=== PATIENT | male | born 1955 | race Caucasian/White ===

== ENCOUNTER 2017-02-10 17:15 | Emergency (ER) | payer MEDICARE, MEDICAID ==
[~2017-02-10] VITALS: Ht 180.3 cm; Wt 88.9 kg
[~2017-02-10 17:15] MED LIST: FLUT1DIS3 INH; GUAI600T53 PO; LEVO500T33 PO; METH40TA3 PO; PRED20TA PO
[2017-02-10 17:18] VITALS: BP 132/82
[2017-02-10 17:59] LABS: PATH.CAST-FLAG NOT PRESENT; SPERM-FLAG NOT PRESENT; SRC-FLAG NOT PRESENT; XTAL-FLAG NOT PRESENT; YLC-FLAG NOT PRESENT
[2017-02-10 18:35] LABS: BLOOD UREA NITROGEN 25 mg/dL (7-18)
[2017-02-10 18:38] LABS: ASPARTATE AMINO TRANSFERASE 41 U/L (15-37)
== END 2017-02-10 18:54 | disposition home or self-care (01) ==
LOC: ED 18:48
DX: N30.01 Acute cystitis with hematuria (principal); J44.9 Chronic obstructive pulmonary disease, unspecified; G89.29 Other chronic pain; B18.2 Chronic viral hepatitis C
CPT/HCPCS: 36415; 80053; 81001; 85025; 99284

== ENCOUNTER 2017-03-11 22:25 | Emergency (ER) | payer MEDICARE, MEDICAID ==
[~2017-03-11] VITALS: Ht 167.6 cm; Wt 91.0 kg
[2017-03-12 01:26] LABS: PATH.CAST-FLAG NOT PRESENT; SPERM-FLAG NOT PRESENT; SRC-FLAG NOT PRESENT; XTAL-FLAG NOT PRESENT; YLC-FLAG NOT PRESENT
[2017-03-12] MEDS ORDERED: PHENAZOPYRIDINE 200 MG TABLET ONE (01:36)
[2017-03-12 01:41] LABS: ASPARTATE AMINO TRANSFERASE 39 U/L (15-37); BLOOD UREA NITROGEN 25 mg/dL (7-18)
[2017-03-12] MEDS ORDERED: PHENAZOPYRIDINE 200 MG TABLET PO ONE (02:00)
[2017-03-12 03:21] VITALS: BP 175/97
== END 2017-03-12 03:49 | disposition home or self-care (01) ==
LOC: ED 03-12 01:50
DX: R31.0 Gross hematuria (principal); R30.0 Dysuria; R60.0 Localized edema; J44.9 Chronic obstructive pulmonary disease, unspecified; F17.210 Nicotine dependence, cigarettes, uncomplicated
CPT/HCPCS: 36415; 71020; 80053; 81001; 83880; 85025; 93005; 99285

== ENCOUNTER 2017-03-13 08:45 | Emergency (ER) | payer MEDICARE, MEDICAID ==
[~2017-03-13] VITALS: Ht 165.1 cm; Wt 89.3 kg
[2017-03-13 08:58] VITALS: BP 155/97
[2017-03-13] MEDS ORDERED: PHENAZOPYRIDINE 200 MG TABLET PO ONE (09:30)
[2017-03-13] MEDS ORDERED: PHENAZOPYRIDINE 200 MG TABLET ONE (10:20)
== END 2017-03-13 10:49 ==
LOC: ED 09:31
DX: N30.01 Acute cystitis with hematuria (principal); J44.9 Chronic obstructive pulmonary disease, unspecified; Z86.19 Personal history of other infectious and parasitic diseases
CPT/HCPCS: 99283

== ENCOUNTER 2017-11-15 16:23 | Emergency (ER) | payer MEDICARE, MEDICAID ==
[~2017-11-15] VITALS: Ht 180.3 cm; Wt 88.0 kg
[~2017-11-15 16:23] MED LIST changes: -GUAI600T53 PO; +GUAI600T80 PO; -LEVO500T33 PO; +LEVO500T47 PO
[2017-11-15 16:25] VITALS: BP 137/93
[2017-11-15 17:50] LABS: CULTURE INDICATED? YES; MICROSCOPIC INDICATED
== END 2017-11-15 18:56 | disposition home or self-care (01) ==
LOC: ED 18:53
DX: N30.00 Acute cystitis without hematuria (principal); J44.9 Chronic obstructive pulmonary disease, unspecified
CPT/HCPCS: 81001; 87086; 99284

== ENCOUNTER 2018-01-09 01:20 | Emergency (ER) | payer MEDICARE, MEDICAID ==
[~2018-01-09] VITALS: Ht 165.1 cm; Wt 83.7 kg
[2018-01-09 03:40] LABS: BASOPHILS # (AUTO) 0.03 x10^3/uL (0-0.1); BASOPHILS % (AUTO) 1 % (0-1); EOSINOPHILS # (AUTO) 0.27 x10^3/uL (0-0.4); EOSINOPHILS % (AUTO) 5 % (1-7); LYMPHOCYTES # (AUTO) 1.09 x10^3/uL (1-3.4); LYMPHOCYTES % (AUTO) 18 % (22-44); MD NO; MEAN CORPUSCULAR HEMOGLOBIN 28.6 pg (27.5-34.5); MEAN CORPUSCULAR HGB CONC 32.6 g/dL (33.2-36.2); MEAN CORPUSCULAR VOLUME 87.8 fL (81-97); MEAN PLATELET VOLUME 8.3 fL (7.4-10.4); MONOCYTES # (AUTO) 0.42 x10^3/uL (0.2-0.8); MONOCYTES % (AUTO) 7 % (2-9); NEUTROPHILS # (AUTO) 4.11 x10^3/uL (1.8-6.8); NEUTROPHILS % (AUTO) 70 % (42-75); PLATELET COUNT 182 x10^3/uL (130-400); RED BLOOD COUNT 4.49 x10^6/uL (4.38-5.82); RED CELL DISTRIBUTION WIDTH 14.7 % (9.4-14.8)
[2018-01-09 03:48] LABS: ALANINE AMINOTRANSFERASE 39 U/L (12-78); ALBUMIN 3.5 g/dL (3.4-5.0); ANION GAP 7 mmol/L (5-15); CALCIUM 8.6 mg/dL (8.5-10.1); CHLORIDE 104 mmol/L (98-107); CREATININE 1.05 mg/dL (0.7-1.3)
[2018-01-09 03:51] LABS: ALKALINE PHOSPHATASE 76 U/L (45-117); BILIRUBIN,TOTAL 0.6 mg/dL (0.2-1.0); TOTAL PROTEIN 7.5 g/dL (6.4-8.2)
[2018-01-09 06:00] VITALS: BP 137/88
== END 2018-01-09 06:03 | disposition home or self-care (01) ==
LOC: ED 05:57
DX: B35.3 Tinea pedis (principal); I10 Essential (primary) hypertension; G89.29 Other chronic pain; M79.672 Pain in left foot; J44.9 Chronic obstructive pulmonary disease, unspecified; F17.210 Nicotine dependence, cigarettes, uncomplicated
CPT/HCPCS: 36415; 80053; 85025; 99285

== ENCOUNTER 2019-03-21 14:28 | Emergency (ER) | payer MEDICARE, MEDICAID ==
[~2019-03-21] VITALS: Ht 180.3 cm; Wt 89.1 kg
[2019-03-21 14:44] VITALS: BP 160/88
[2019-03-21] MEDS ORDERED: ALBUTEROL/IPRATROPIUM 2.5MG/0.5MG, 3 ML ONE (15:22)
[2019-03-21] MEDS ORDERED: ALBUTEROL/IPRATROPIUM 2.5MG/0.5MG, 3 ML NPPB ONE (15:30)
== END 2019-03-21 16:11 | disposition home or self-care (01) ==
LOC: ED 16:00
DX: J02.9 Acute pharyngitis, unspecified (principal); F17.200 Nicotine dependence, unspecified, uncomplicated; I10 Essential (primary) hypertension; J44.9 Chronic obstructive pulmonary disease, unspecified
CPT/HCPCS: 71046; 87081; 87880; 94640; 99284; J7620; 87147

== ENCOUNTER 2019-04-03 02:13 | Emergency (ER) | payer MEDICARE, MEDICAID ==
[~2019-04-03] VITALS: Ht 180.3 cm; Wt 89.2 kg
[2019-04-03] MEDS ORDERED: methylPREDNISolone SOD SUCC 125 MG/2 ML IVP ONE (02:30)
[2019-04-03] MEDS ORDERED: ALBUTEROL/IPRATROPIUM 2.5MG/0.5MG, 3 ML NPPB SCH (02:30)
[2019-04-03] MEDS ORDERED: SODIUM CHLORIDE FLUSH 10ML SYR IVF ONE (02:30)
[2019-04-03] MEDS ORDERED: ALBUTEROL/IPRATROPIUM 2.5MG/0.5MG, 3 ML ONE ×2 (02:45)
[2019-04-03] MEDS ORDERED: methylPREDNISolone SOD SUCC 125 MG/2 ML ONE (03:14)
[2019-04-03 03:39] VITALS: BP 140/78
[2019-04-03 03:43] LABS: BASOPHILS # (AUTO) 0.03 x10^3/uL (0-0.1); BASOPHILS % (AUTO) 0 % (0-1); EOSINOPHILS # (AUTO) 0.73 x10^3/uL (0-0.4); EOSINOPHILS % (AUTO) 9 % (1-7); LYMPHOCYTES # (AUTO) 1.58 x10^3/uL (1-3.4); LYMPHOCYTES % (AUTO) 20 % (22-44); MD NO; MEAN CORPUSCULAR HEMOGLOBIN 29.5 pg (27.5-34.5); MEAN CORPUSCULAR HGB CONC 32.7 g/dL (33.2-36.2); MEAN CORPUSCULAR VOLUME 90.2 fL (81-97); MEAN PLATELET VOLUME 8.5 fL (7.4-10.4); MONOCYTES # (AUTO) 0.69 x10^3/uL (0.2-0.8); MONOCYTES % (AUTO) 9 % (2-9); NEUTROPHILS # (AUTO) 4.82 x10^3/uL (1.8-6.8); NEUTROPHILS % (AUTO) 61 % (42-75); PLATELET COUNT 177 x10^3/uL (130-400); RED BLOOD COUNT 4.66 x10^6/uL (4.38-5.82); RED CELL DISTRIBUTION WIDTH 14.3 % (9.4-14.8)
--- NOTE | 2019-04-03 03:46 | NUR ---
PT IN HOSPITAL GOWN. IV STARTED, PT MEDICATED WITH ORDERED MEDS. BLOOD CX DRAWN X2 AND LABS. PT ON CARDIAC AND VITALS MONITORS. BILAT BEDRAILS UP. CALL LIGHT WITHIN REACH. WILL CONTINUE TO MONITOR.
[2019-04-03 03:52] LABS: ALANINE AMINOTRANSFERASE 30 U/L (12-78); ALBUMIN 3.7 g/dL (3.4-5.0); ANION GAP 3 mmol/L (5-15); CALCIUM 8.8 mg/dL (8.5-10.1); CHLORIDE 108 mmol/L (98-107); CREATININE 1.07 mg/dL (0.7-1.3)
[2019-04-03 03:56] LABS: ALKALINE PHOSPHATASE 65 U/L (45-117); BILIRUBIN,TOTAL 0.8 mg/dL (0.2-1.0); TOTAL PROTEIN 7.7 g/dL (6.4-8.2); TROPONIN I < 0.015 ng/mL (0.000-0.045)
== END 2019-04-03 04:30 | disposition home or self-care (01) ==
LOC: ED 04:28
DX: J44.1 Chronic obstructive pulmonary disease with (acute) exacerbation (principal); J20.8 Acute bronchitis due to other specified organisms; I10 Essential (primary) hypertension; G89.29 Other chronic pain; F17.210 Nicotine dependence, cigarettes, uncomplicated
CPT/HCPCS: 36415; 71045; 80053; 83880; 84484; 85025; 87040; 93005; 94640; 96374; 99284; 99406; J2930; J7620

== ENCOUNTER 2019-05-03 02:46 | Emergency (ER) | payer MEDICARE, MEDICAID ==
[~2019-05-03] VITALS: Ht 180.3 cm; Wt 88.7 kg
--- NOTE | 2019-05-03 03:04 | NUR ---
pt states he has had difficulty breathing for about 6 weeks.
--- NOTE | 2019-05-03 03:05 | NUR ---
er md in to assess pt
[2019-05-03] MEDS ORDERED: ALBUTEROL/IPRATROPIUM 2.5MG/0.5MG, 3 ML ONE (03:12)
[2019-05-03 03:32] LABS: BASOPHILS # (AUTO) 0.02 x10^3/uL (0-0.1); BASOPHILS % (AUTO) 0 % (0-1); EOSINOPHILS # (AUTO) 0.04 x10^3/uL (0-0.4); EOSINOPHILS % (AUTO) 1 % (1-7); LYMPHOCYTES # (AUTO) 0.67 x10^3/uL (1-3.4); LYMPHOCYTES % (AUTO) 10 % (22-44); MD NO; MEAN CORPUSCULAR HEMOGLOBIN 29.3 pg (27.5-34.5); MEAN CORPUSCULAR HGB CONC 32.8 g/dL (33.2-36.2); MEAN CORPUSCULAR VOLUME 89.3 fL (81-97); MEAN PLATELET VOLUME 8.2 fL (7.4-10.4); MONOCYTES # (AUTO) 0.11 x10^3/uL (0.2-0.8); MONOCYTES % (AUTO) 2 % (2-9); NEUTROPHILS # (AUTO) 5.78 x10^3/uL (1.8-6.8); NEUTROPHILS % (AUTO) 87 % (42-75); PLATELET COUNT 215 x10^3/uL (130-400); RED BLOOD COUNT 4.31 x10^6/uL (4.38-5.82); RED CELL DISTRIBUTION WIDTH 14.5 % (9.4-14.8)
[2019-05-03 03:46] LABS: ALANINE AMINOTRANSFERASE 40 U/L (12-78); ALBUMIN 3.4 g/dL (3.4-5.0); ANION GAP 7 mmol/L (5-15); CALCIUM 9.1 mg/dL (8.5-10.1); CHLORIDE 113 mmol/L (98-107); CREATININE 1.23 mg/dL (0.7-1.3)
[2019-05-03 03:50] LABS: ALKALINE PHOSPHATASE 60 U/L (45-117); BILIRUBIN,TOTAL 0.4 mg/dL (0.2-1.0); TOTAL PROTEIN 7.3 g/dL (6.4-8.2); TROPONIN I < 0.015 ng/mL (0.000-0.045)
[2019-05-03 04:13] VITALS: BP 135/79
--- NOTE | 2019-05-03 04:14 | NUR ---
PT RESTING ON GURGENEVA. NO REQUESTS AT THIS TIME. NO ACUTE DISTRESS NTOED.
== END 2019-05-03 04:41 | disposition home or self-care (01) ==
LOC: ED 04:30
DX: L03.116 Cellulitis of left lower limb (principal); L03.115 Cellulitis of right lower limb; R06.00 Dyspnea, unspecified; J44.9 Chronic obstructive pulmonary disease, unspecified; I10 Essential (primary) hypertension; Z86.19 Personal history of other infectious and parasitic diseases; Z72.9 Problem related to lifestyle, unspecified; F17.200 Nicotine dependence, unspecified, uncomplicated
CPT/HCPCS: 36415; 71045; 80053; 83880; 84484; 85025; 93005; 94640; 99284

== ENCOUNTER 2019-05-16 21:14 | Inpatient (IN) | payer MEDICARE, MEDICAID ==
[~2019-05-16] VITALS: Ht 180.3 cm; Wt 89.1 kg
[2019-05-16] MEDS ORDERED: ALBUTEROL SULFATE 2.5 MG/3 ML NPPB ONE (21:30)
[2019-05-16] MEDS ORDERED: ALBUTEROL/IPRATROPIUM 2.5MG/0.5MG, 3 ML ONE (21:41)
[2019-05-16 21:50] LABS: BASOPHILS % (AUTO) 0 % (0-1); EOSINOPHILS # (AUTO) 0.04 x10^3/uL (0-0.4); EOSINOPHILS % (AUTO) 0 % (1-7); LYMPHOCYTES # (AUTO) 0.92 x10^3/uL (1-3.4); LYMPHOCYTES % (AUTO) 11 % (22-44); MD NO; MEAN CORPUSCULAR HEMOGLOBIN 29.3 pg (27.5-34.5); MEAN CORPUSCULAR HGB CONC 32.5 g/dL (33.2-36.2); MEAN CORPUSCULAR VOLUME 90.3 fL (81-97); MONOCYTES % (AUTO) 6 % (2-9); NEUTROPHILS # (AUTO) 7.02 x10^3/uL (1.8-6.8); NEUTROPHILS % (AUTO) 83 % (42-75); PLATELET COUNT 184 x10^3/uL (130-400); RED BLOOD COUNT 4.54 x10^6/uL (4.38-5.82); RED CELL DISTRIBUTION WIDTH 14.6 % (9.4-14.8)
[2019-05-16 21:59] LABS: ALANINE AMINOTRANSFERASE 47 U/L (12-78); ALBUMIN 3.2 g/dL (3.4-5.0); ANION GAP 3 mmol/L (5-15); CALCIUM 8.9 mg/dL (8.5-10.1); CHLORIDE 110 mmol/L (98-107); CREATININE 1.08 mg/dL (0.7-1.3)
[2019-05-16 22:05] LABS: ALKALINE PHOSPHATASE 59 U/L (45-117); BILIRUBIN,TOTAL 0.4 mg/dL (0.2-1.0)
--- NOTE | 2019-05-16 22:22 | NUR ---
FLOAT RN: PT RESTING IN ROOM. NO ACUTE DISTRESS NOTED. VS STABLE. WILL CONTINUE TO MONITOR WHILE PRIMARY RN IS ON BREAK.
[2019-05-16] MEDS ORDERED: ONDANSETRON ODT 4 MG ONE (22:37)
[2019-05-16] MEDS ORDERED: ONDANSETRON ODT 4 MG PO ONE (23:00)
--- NOTE | 2019-05-16 23:00 | NUR ---
REPORT GIVEN TO ESTEFANY GUTIERREZ
[2019-05-16 23:02] LABS: TROPONIN I 0.115 ng/mL (0.000-0.045)
[2019-05-16] MEDS ORDERED: ASPIRIN 81 MG TABLET CHEW ONE (23:27)
[2019-05-16] MEDS ORDERED: PROMETHAZINE 25 MG/ML, 1ML IM PRN (23:30)
[2019-05-16] MEDS ORDERED: MORPHINE SULFATE 4 MG/ML, 1ML IVPush PRN (23:30)
[2019-05-16] MEDS ORDERED: ONDANSETRON 2MG/ML, 2ML IVPush PRN (23:30)
[2019-05-16] MEDS ORDERED: ASPIRIN 81 MG TABLET CHEW PO ONE (23:30)
[2019-05-17 00:42] VITALS: BP 165/79
[2019-05-17] MEDS ORDERED: ONDANSETRON 2MG/ML, 2ML IVPush PRN (01:30)
[2019-05-17] MEDS ORDERED: METHADONE 5 MG TABLET PO PRN (01:30)
[2019-05-17] MEDS ORDERED: HEPARIN 5,000 UNITS/ML, 1ML SQ SCH (01:30)
[2019-05-17] MEDS ORDERED: MAALOX/HYOSCYAMINE/LIDOCAINE 45 ML BTL PO ONE (01:30)
[2019-05-17] MEDS ORDERED: LABETALOL 5MG/ML, 20ML IVPush PRN (01:30)
[2019-05-17] MEDS ORDERED: POLYETHYLENE GLYCOL 17 GM PACKET PO PRN (01:30)
[2019-05-17] MEDS ORDERED: morphine SULFATE 10 MG/ML, 1ML IVPush PRN (01:30)
[2019-05-17] MEDS ORDERED: PROMETHAZINE 25 MG/ML, 1ML IM PRN (01:30)
[2019-05-17] MEDS ORDERED: BISACODYL 10 MG SUPP PR PRN (01:30)
[2019-05-17] MEDS ORDERED: hydrALAzine 20 MG/ML, 1ML IVPush PRN (01:30)
[2019-05-17] MEDS ORDERED: ONDANSETRON ODT 4 MG PO PRN (01:30)
[2019-05-17] MEDS ORDERED: ACETAMINOPHEN 325 MG TABLET PO PRN (01:30)
[2019-05-17 02:27] LABS: MICROSCOPIC AUTO
[2019-05-17 02:30] LABS: CULTURE INDICATED? YES
[2019-05-17] MEDS ORDERED: ALBUTEROL SULFATE 2.5 MG/3 ML NPPB PRN (02:30)
[2019-05-17 02:49] LABS: HEMOGLOBIN A1C 5.5 % (4.2-6.3)
[2019-05-17 06:24] LABS: FREE T4 (FREE THYROXINE) 1.19 ng/dL (0.76-1.46)
[2019-05-17 07:45] VITALS: BP 172/101
[2019-05-17] MEDS: FAMOTIDINE 20 MG TABLET PO SCH ×2 (08:18→21:12)
[2019-05-17] MEDS: LOSARTAN 25MG TABLET PO SCH (08:19)
[2019-05-17] MEDS: CALCIUM CARBONATE 500 MG TAB.CHEW PO PRN (08:19)
[2019-05-17] MEDS ORDERED: FAMOTIDINE 20 MG/2 ML IVPush SCH (09:00)
[2019-05-17 09:42] VITALS: BP 154/90
[2019-05-17 13:06] LABS: TROPONIN I < 0.015 ng/mL (0.000-0.045)
[2019-05-17 13:21] VITALS: BP 169/97
[2019-05-17 15:38] LABS: TROPONIN I < 0.015 ng/mL (0.000-0.045)
[2019-05-17] MEDS: METHADONE 5 MG TABLET PO SCH (18:24)
[2019-05-17 19:08] VITALS: BP 166/90
[2019-05-17] MEDS ORDERED: TEMAZEPAM 15 MG CAPSULE PO PRN (21:00)
[2019-05-18] MEDS: METHADONE 5 MG TABLET PO SCH ×4 (00:28→17:57)
[2019-05-18 02:07] VITALS: BP 164/77
[2019-05-18] MEDS: DOCUSATE 100 MG CAPSULE PO PRN (06:04)
[2019-05-18 07:33] LABS: MEAN CORPUSCULAR HEMOGLOBIN 28.8 pg (27.5-34.5); MEAN CORPUSCULAR HGB CONC 32.7 g/dL (33.2-36.2); MEAN CORPUSCULAR VOLUME 88.1 fL (81-97); MEAN PLATELET VOLUME 8.7 fL (7.4-10.4); PLATELET COUNT 178 x10^3/uL (130-400); RED BLOOD COUNT 4.42 x10^6/uL (4.38-5.82); RED CELL DISTRIBUTION WIDTH 14.6 % (9.4-14.8)
[2019-05-18 07:37] LABS: ALANINE AMINOTRANSFERASE 50 U/L (12-78); ALBUMIN 3.1 g/dL (3.4-5.0); ANION GAP 7 mmol/L (5-15); CALCIUM 8.4 mg/dL (8.5-10.1); CHLORIDE 106 mmol/L (98-107); CHOLESTEROL, TOTAL 78 mg/dL (140-239); CREATININE 0.98 mg/dL (0.7-1.3); TRIGLYCERIDES 59 mg/dL (50-200); VLDL CHOLESTEROL 12 mg/dL (0-25)
[2019-05-18 07:39] LABS: ALKALINE PHOSPHATASE 54 U/L (45-117); BILIRUBIN,TOTAL 0.6 mg/dL (0.2-1.0); CHOL/HDL RATIO 2.1; HDL CHOL % 49 % (26-37); HDL CHOLESTEROL (DIRECT) 38 mg/dL (40-60); LDL CHOLESTEROL,CALCULATED 28 mg/dL (54-169); LDL/HDL RATIO 0.7 (0.5-3.0); TOTAL PROTEIN 6.5 g/dL (6.4-8.2)
[2019-05-18 08:13] VITALS: BP 152/84
[2019-05-18 08:14] LABS: MD YES
[2019-05-18 08:16] LABS: LYMPH#(MANUAL) 1.54 x10^3/uL (1-3.4); LYMPHS% (MANUAL) 19 % (22-44); MONOS#(MANUAL) 0.32 x10^3/uL (0.3-2.7); MONOS% (MANUAL) 4 % (2-9); REACTIVE LYMPHS # (MANUAL) 0.24 x10^3/uL (0-0); REACTIVE LYMPHS % (MANUAL) 3 % (0-0); SEG#(MANUAL) 5.99 x10^3/uL (1.8-6.8); SEGS% (MANUAL) 74 % (42-75)
[2019-05-18 08:17] LABS: <PLATELET ESTIMATE> ADEQUATE; <PLT MORPHOLOGY> NORMAL PLT MORPH; <RBC MORPHOLOGY> NORMAL
[2019-05-18] MEDS: FAMOTIDINE 20 MG TABLET PO SCH ×2 (08:24→20:21)
[2019-05-18] MEDS: HYDROcodone/APAP 5/325 TABLET PO PRN (08:24)
[2019-05-18] MEDS: LOSARTAN 25MG TABLET PO SCH (08:24)
[2019-05-18 12:24] VITALS: BP 127/78
[2019-05-18 19:48] VITALS: BP 147/89
[2019-05-19 00:15] VITALS: BP 111/70
[2019-05-19] MEDS: METHADONE 5 MG TABLET PO SCH ×4 (00:17→18:36)
[2019-05-19] MEDS: HYDROcodone/APAP 5/325 TABLET PO PRN ×2 (04:31→10:16)
[2019-05-19 07:45] VITALS: BP 144/84
[2019-05-19] MEDS: LOSARTAN 25MG TABLET PO SCH (08:46)
[2019-05-19] MEDS: DOCUSATE 100 MG CAPSULE PO PRN (08:46)
[2019-05-19] MEDS: FAMOTIDINE 20 MG TABLET PO SCH (08:46)
[2019-05-19] MEDS ORDERED: REGADENOSON 0.4 MG/5 ML SYRINGE ONE (10:31)
[2019-05-19 14:00] VITALS: BP 137/78
[2019-05-19] MEDS ORDERED: LOSA25TA25 PO (17:01)
[2019-05-19] MEDS: CALCIUM CARBONATE 500 MG TAB.CHEW PO PRN (17:44)
== END 2019-05-19 18:46 | disposition home or self-care (01) | DRG 281 ==
LOC: ED 23:23 → EDIP 23:26 → 5SO 05-17 00:22
PROVIDERS: ADMIT Internal Medicine; ATTEND Internal Medicine
DX: I21.4 Non-ST elevation (NSTEMI) myocardial infarction (principal); F11.93 Opioid use, unspecified with withdrawal; B18.2 Chronic viral hepatitis C; F17.200 Nicotine dependence, unspecified, uncomplicated; G47.33 Obstructive sleep apnea (adult) (pediatric); G89.29 Other chronic pain; I10 Essential (primary) hypertension; J44.9 Chronic obstructive pulmonary disease, unspecified; K21.9 Gastro-esophageal reflux disease without esophagitis; N31.9 Neuromuscular dysfunction of bladder, unspecified; Z86.14 Personal history of Methicillin resistant Staphylococcus aureus infection; Z79.899 Other long term (current) drug therapy
CPT/HCPCS: 36415; 71045; 78452; 80053; 80061; 81001; 83036; 83735; 83880; 84439; 84443; 84484; 85025; 87040; 87086; 93005; 93017; 93306; 94640; G0378; J2405; J2785; J7613; Q0162; A9502; C9898; J7512

== ENCOUNTER 2019-08-24 09:16 | Emergency (ER) | payer MEDICARE, MEDICAID ==
[~2019-08-24] VITALS: Ht 167.6 cm; Wt 83.9 kg
[~2019-08-24 09:16] MED LIST changes: +LOSA25TA25 PO
--- NOTE | 2019-08-24 10:07 | NUR ---
PT HERE TODAY STATING "THERE IS BLOOD IN MY URINE. LAST NIGHT I PEED CLOTS, I SAVED IT IN A BOTTLE. I HAVE BEEN PEEING BLOOD SINCE I BROKE MY BACK." WHEN ASKED WHEN PT BROKE HIS BACK HE REPLIED, "WHEN I WAS 37." PT RESTING ON GURNEY. NADN. VSS. PROVIDED WITH WARM BLANKET. URINE SAMPLE COLLECTED.
[2019-08-24 10:20] LABS: MICROSCOPIC AUTO
[2019-08-24 10:22] LABS: CULTURE INDICATED? YES
--- NOTE | 2019-08-24 10:54 | NUR ---
MD AT BEDSIDE ASSESSING PT NOW.
[2019-08-24 11:08] VITALS: BP 143/87
--- NOTE | 2019-08-24 11:09 | NUR ---
TASK RN: Patient/Caregiver given discharge instructions and they have confirmed that they understand the instructions. Patient ambulatory with steady gait.
== END 2019-08-24 11:28 | disposition home or self-care (01) ==
LOC: ED 11:23
DX: N30.01 Acute cystitis with hematuria (principal); I10 Essential (primary) hypertension; J44.9 Chronic obstructive pulmonary disease, unspecified; I25.2 Old myocardial infarction; F17.200 Nicotine dependence, unspecified, uncomplicated; Z72.9 Problem related to lifestyle, unspecified
CPT/HCPCS: 81001; 87086; 99283

== ENCOUNTER 2019-11-13 03:12 | Emergency (ER) | payer MEDICARE, MEDICAID ==
[~2019-11-13] VITALS: Ht 180.3 cm; Wt 82.1 kg
--- NOTE | 2019-11-13 03:50 | NUR ---
URINE SAMPLE SENT
[2019-11-13] MEDS ORDERED: DEXAMETHASONE 4 MG/ML, 5ML ONE (03:51)
[2019-11-13] MEDS ORDERED: ALBUTEROL/IPRATROPIUM 2.5MG/0.5MG, 3 ML ONE (03:59)
[2019-11-13 04:00] LABS: CULTURE INDICATED? YES; MICROSCOPIC INDICATED
[2019-11-13] MEDS ORDERED: SODIUM CHLORIDE 0.9% 1,000ML IVBOLUS ONE (04:00)
[2019-11-13] MEDS ORDERED: DEXAMETHASONE 4 MG/ML, 1ML IVPush ONE (04:00)
[2019-11-13] MEDS ORDERED: SODIUM CHLORIDE FLUSH 10ML SYR IVF ONE (04:00)
[2019-11-13] MEDS ORDERED: ALBUTEROL/IPRATROPIUM 2.5MG/0.5MG, 3 ML NPPB ONE (04:00)
[2019-11-13 04:01] LABS: BASOPHILS # (AUTO) 0.04 x10^3/uL (0-0.1); BASOPHILS % (AUTO) 1 % (0-1); EOSINOPHILS # (AUTO) 0.61 x10^3/uL (0-0.4); EOSINOPHILS % (AUTO) 8 % (1-7); LYMPHOCYTES # (AUTO) 1.61 x10^3/uL (1-3.4); LYMPHOCYTES % (AUTO) 22 % (22-44); MD NO; MEAN CORPUSCULAR HEMOGLOBIN 27.7 pg (27.5-34.5); MEAN CORPUSCULAR HGB CONC 32.4 g/dL (33.2-36.2); MEAN CORPUSCULAR VOLUME 85.5 fL (81-97); MEAN PLATELET VOLUME 8.1 fL (7.4-10.4); MONOCYTES # (AUTO) 0.43 x10^3/uL (0.2-0.8); MONOCYTES % (AUTO) 6 % (2-9); NEUTROPHILS % (AUTO) 63 % (42-75); PLATELET COUNT 230 x10^3/uL (130-400); RED BLOOD COUNT 5.35 x10^6/uL (4.38-5.82); RED CELL DISTRIBUTION WIDTH 15.2 % (9.4-14.8)
--- NOTE | 2019-11-13 04:07 | NUR ---
IV SITE STARTED, PT MEDICATED PER MAR, IV FLUIDS INFUSING. PT RESTING CALMLY, MONITORS IN PLACE, SIDERAILS UP X2, CALL LIGHT WITHIN REACH, AWAITING LAB RESULTS
[2019-11-13 04:11] LABS: ALANINE AMINOTRANSFERASE 59 U/L (12-78); ALBUMIN 3.3 g/dL (3.4-5.0); ANION GAP 6 mmol/L (5-15); CALCIUM 8.7 mg/dL (8.5-10.1); CHLORIDE 109 mmol/L (98-107); CREATININE 1.06 mg/dL (0.7-1.3)
[2019-11-13 04:14] LABS: ALKALINE PHOSPHATASE 74 U/L (45-117); BILIRUBIN,TOTAL 0.5 mg/dL (0.2-1.0); TOTAL PROTEIN 7.7 g/dL (6.4-8.2)
[2019-11-13] MEDS ORDERED: CEFTRIAXONE PMX 1GM/50ML 50 ML ONE (04:52)
--- NOTE | 2019-11-13 04:56 | NUR ---
PT RESTING CALMLY WATCHING TV, IV ABX INFUSING, DENIES NEEDS, CALL LIGHT WITHIN REACH
[2019-11-13] MEDS ORDERED: CEFTRIAXONE PMX 1GM/50ML 50 ML IV ONE (05:00)
[2019-11-13 05:55] VITALS: BP 145/94
== END 2019-11-13 05:57 | disposition home or self-care (01) ==
LOC: ED 03:57
DX: J44.1 Chronic obstructive pulmonary disease with (acute) exacerbation (principal); N39.0 Urinary tract infection, site not specified; I10 Essential (primary) hypertension
CPT/HCPCS: 36415; 71045; 80053; 81001; 83605; 85025; 87040; 87077; 87086; 93005; 94640; 96374; 96375; 99284; J0696; J1100; J7030; J7620

== ENCOUNTER 2020-01-27 22:01 | Inpatient (IN) | payer MEDICARE, MEDICAID ==
[~2020-01-27] VITALS: Ht 180.3 cm; Wt 82.4 kg
[2020-01-27] MEDS ORDERED: SODIUM CHLORIDE FLUSH 10ML SYR IVF ONE (22:30)
--- NOTE | 2020-01-27 22:54 | NUR ---
Pt resting on gurney, heart rate improving to 110. Pt denies any chest pain, on shortness of breath. Pt SPO2 96% on 2L NC and tolerating well. Pt placed on all monitors and iv started with lab and blood culture x1 draw. Will cont to monitor.
[2020-01-27 23:01] LABS: BASOPHILS # (AUTO) 0.02 x10^3/uL (0-0.1); BASOPHILS % (AUTO) 0 % (0-1); EOSINOPHILS # (AUTO) 0.08 x10^3/uL (0-0.4); EOSINOPHILS % (AUTO) 1 % (1-7); LYMPHOCYTES # (AUTO) 1.03 x10^3/uL (1-3.4); LYMPHOCYTES % (AUTO) 14 % (22-44); MD NO; MEAN CORPUSCULAR HEMOGLOBIN 28.2 pg (27.5-34.5); MEAN CORPUSCULAR VOLUME 85.5 fL (81-97); MEAN PLATELET VOLUME 8.3 fL (7.4-10.4); MONOCYTES # (AUTO) 0.69 x10^3/uL (0.2-0.8); MONOCYTES % (AUTO) 10 % (2-9); NEUTROPHILS # (AUTO) 5.42 x10^3/uL (1.8-6.8); NEUTROPHILS % (AUTO) 75 % (42-75); PLATELET COUNT 244 x10^3/uL (130-400); RED BLOOD COUNT 4.53 x10^6/uL (4.38-5.82); RED CELL DISTRIBUTION WIDTH 14.9 % (9.4-14.8)
[2020-01-27 23:08] LABS: ALANINE AMINOTRANSFERASE 34 U/L (12-78); ALBUMIN 3.2 g/dL (3.4-5.0); ANION GAP 8 mmol/L (5-15); CHLORIDE 103 mmol/L (98-107); CREATININE 1.09 mg/dL (0.7-1.3)
[2020-01-27 23:12] LABS: ALKALINE PHOSPHATASE 82 U/L (45-117); BILIRUBIN,TOTAL 0.8 mg/dL (0.2-1.0); TROPONIN I < 0.015 ng/mL (0.000-0.045)
[2020-01-27 23:30] LABS: RAPID INFLUENZA A Negative (Negative); RAPID INFLUENZA B Negative (Negative)
[2020-01-27] MEDS ORDERED: SODIUM CHLORIDE 0.9% 1,000ML IVBOLUS ONE (23:30)
[2020-01-27] MEDS ORDERED: AZITHROMYCIN 500 MG in SODIUM CHLORIDE 0.9% 250 ML IV ONE (23:30)
[2020-01-27] MEDS ORDERED: CEFTRIAXONE PMX 1GM/50ML 50 ML IVPB ONE (23:30)
[2020-01-27] MEDS ORDERED: CEFTRIAXONE PMX 1GM/50ML 50 ML ONE (23:43)
--- NOTE | 2020-01-27 23:49 | NUR ---
Blood cultures x2 drawn, IV abx infusing at this time.
[2020-01-28] MEDS ORDERED: SODIUM CHLORIDE 0.9% 1,000 ML IV ONE (00:13)
[2020-01-28] MEDS ORDERED: METH40TA3 PO (00:44)
[2020-01-28 01:34] VITALS: BP 129/64
[2020-01-28 02:14] VITALS: BP 129/64
[2020-01-28] MEDS ORDERED: hydrALAzine 20 MG/ML, 1ML IVPush PRN (04:30)
[2020-01-28] MEDS ORDERED: ONDANSETRON 2MG/ML, 2ML IVPush PRN (04:30)
[2020-01-28] MEDS ORDERED: LIDODERM 5% PATCH TD PRN (04:30)
[2020-01-28] MEDS ORDERED: TRAZODONE 50MG TABLET PO PRN (04:30)
[2020-01-28] MEDS ORDERED: morphine SULFATE 10 MG/ML, 1ML IVPush PRN (04:30)
[2020-01-28] MEDS ORDERED: ACETAMINOPHEN 325 MG TABLET PO PRN (04:30)
[2020-01-28] MEDS ORDERED: KETOROLAC 30 MG/1 ML IV PRN (04:30)
[2020-01-28] MEDS: NICOTINE 14MG/24 HR PATCH.TD24 TD SCH (04:55)
[2020-01-28] MEDS: ENOXAPARIN 40 MG/0.4 ML SQ SCH (04:55)
[2020-01-28] MEDS ORDERED: ALBUTEROL HFA 90 MCG/SPRAY INH PRN (05:00)
[2020-01-28 06:45] VITALS: BP 133/88
[2020-01-28 07:43] LABS: AMPHETAMINE SCREEN, URINE Positive (Negative); BARBITURATE SCREEN, URINE Negative (Negative); BENZODIAZEPINE SCREEN, URINE Negative (Negative); CANNABINOID SCREEN, URINE Negative (Negative); COCAINE SCREEN, URINE Negative (Negative); METHADONE SCREEN, URINE Positive (Negative); OPIATE SCREEN, URINE Positive (Negative)
[2020-01-28] MEDS ORDERED: METHADONE 10 MG TABLET ONE (08:21)
[2020-01-28] MEDS: METHADONE 40 MG TABLET.SOL PO SCH (09:30)
[2020-01-28] MEDS: SENNA/DOCUSATE TABLET PO SCH (09:30)
[2020-01-28] MEDS: DOXYCYCLINE 100MG TABLET PO SCH ×2 (09:30→21:33)
[2020-01-28] MEDS ORDERED: FUROSEMIDE 40 MG/4 ML IV ONE (12:00)
[2020-01-28 12:19] VITALS: BP 130/78
[2020-01-28 20:40] VITALS: BP 153/95
[2020-01-28] MEDS: CEFTRIAXONE PMX 1GM/50ML 50 ML IV SCH (21:33)
[2020-01-29 04:00] VITALS: BP 162/94
[2020-01-29] MEDS: ENOXAPARIN 40 MG/0.4 ML SQ SCH (04:22)
[2020-01-29] MEDS: NICOTINE 14MG/24 HR PATCH.TD24 TD SCH (04:22)
[2020-01-29 05:26] LABS: BASOPHILS # (AUTO) 0.02 x10^3/uL (0-0.1); BASOPHILS % (AUTO) 0 % (0-1); EOSINOPHILS # (AUTO) 0.08 x10^3/uL (0-0.4); EOSINOPHILS % (AUTO) 1 % (1-7); LYMPHOCYTES # (AUTO) 1.45 x10^3/uL (1-3.4); LYMPHOCYTES % (AUTO) 21 % (22-44); MD NO; MEAN CORPUSCULAR HGB CONC 32.4 g/dL (33.2-36.2); MEAN CORPUSCULAR VOLUME 86.6 fL (81-97); MEAN PLATELET VOLUME 8.9 fL (7.4-10.4); MONOCYTES # (AUTO) 0.66 x10^3/uL (0.2-0.8); MONOCYTES % (AUTO) 9 % (2-9); NEUTROPHILS # (AUTO) 4.83 x10^3/uL (1.8-6.8); NEUTROPHILS % (AUTO) 69 % (42-75); PLATELET COUNT 197 x10^3/uL (130-400); RED BLOOD COUNT 4.38 x10^6/uL (4.38-5.82)
[2020-01-29 05:30] LABS: ANION GAP 4 mmol/L (5-15); CHLORIDE 105 mmol/L (98-107)
[2020-01-29 05:32] LABS: CREATININE 1.03 mg/dL (0.7-1.3)
[2020-01-29 08:25] VITALS: BP 134/85
[2020-01-29] MEDS: DOXYCYCLINE 100MG TABLET PO SCH ×2 (08:25→21:21)
[2020-01-29] MEDS: SENNA/DOCUSATE TABLET PO SCH (08:25)
[2020-01-29] MEDS ORDERED: METHADONE 10 MG TABLET ONE (09:30)
[2020-01-29] MEDS: METHADONE 40 MG TABLET.SOL PO SCH (09:38)
[2020-01-29 11:11] VITALS: BP 185/83
[2020-01-29 12:04] VITALS: BP 149/82
[2020-01-29 19:55] VITALS: BP 142/85
[2020-01-29] MEDS: CEFTRIAXONE PMX 1GM/50ML 50 ML IV SCH (22:37)
[2020-01-30 02:41] VITALS: BP 155/88
[2020-01-30] MEDS: ENOXAPARIN 40 MG/0.4 ML SQ SCH (05:13)
[2020-01-30] MEDS: NICOTINE 14MG/24 HR PATCH.TD24 TD SCH (05:13)
[2020-01-30 05:50] LABS: BASOPHILS # (AUTO) 0.03 x10^3/uL (0-0.1); BASOPHILS % (AUTO) 0 % (0-1); EOSINOPHILS # (AUTO) 0.03 x10^3/uL (0-0.4); EOSINOPHILS % (AUTO) 0 % (1-7); LYMPHOCYTES # (AUTO) 1.66 x10^3/uL (1-3.4); LYMPHOCYTES % (AUTO) 21 % (22-44); MD NO; MEAN CORPUSCULAR HEMOGLOBIN 28.6 pg (27.5-34.5); MEAN CORPUSCULAR HGB CONC 32.9 g/dL (33.2-36.2); MEAN PLATELET VOLUME 8.3 fL (7.4-10.4); MONOCYTES # (AUTO) 0.62 x10^3/uL (0.2-0.8); MONOCYTES % (AUTO) 8 % (2-9); NEUTROPHILS # (AUTO) 5.55 x10^3/uL (1.8-6.8); NEUTROPHILS % (AUTO) 70 % (42-75); PLATELET COUNT 239 x10^3/uL (130-400); RED BLOOD COUNT 4.08 x10^6/uL (4.38-5.82)
[2020-01-30 05:51] LABS: ANION GAP 4 mmol/L (5-15); CALCIUM 8.6 mg/dL (8.5-10.1); CHLORIDE 105 mmol/L (98-107); CREATININE 0.83 mg/dL (0.7-1.3)
[2020-01-30 07:08] VITALS: BP 145/87
[2020-01-30] MEDS: METHADONE 40 MG TABLET.SOL PO SCH (08:16)
[2020-01-30] MEDS: SENNA/DOCUSATE TABLET PO SCH (08:17)
[2020-01-30] MEDS: DOXYCYCLINE 100MG TABLET PO SCH ×2 (08:17→21:19)
[2020-01-30 13:33] VITALS: BP 147/89
[2020-01-30 20:44] VITALS: BP 154/88
[2020-01-30] MEDS: CEFTRIAXONE PMX 1GM/50ML 50 ML IV SCH (23:40)
[2020-01-31 01:39] VITALS: BP 159/92
[2020-01-31] MEDS: ENOXAPARIN 40 MG/0.4 ML SQ SCH (04:38)
[2020-01-31] MEDS: NICOTINE 14MG/24 HR PATCH.TD24 TD SCH (04:40)
[2020-01-31 06:34] VITALS: BP 154/94
[2020-01-31] MEDS ORDERED: METHADONE 10 MG TABLET ONE (08:42)
[2020-01-31] MEDS: SENNA/DOCUSATE TABLET PO SCH (08:45)
[2020-01-31] MEDS: DOXYCYCLINE 100MG TABLET PO SCH (08:45)
[2020-01-31] MEDS: METHADONE 40 MG TABLET.SOL PO SCH (08:46)
[2020-01-31] MEDS ORDERED: AMLODIPINE 5 MG TABLET PO SCH (09:00)
[2020-01-31] MEDS ORDERED: DOXY100T PO (09:51)
[2020-01-31] MEDS ORDERED: CEFD300C37 PO (09:51)
[2020-01-31] MEDS ORDERED: AMLO-150 PO (09:51)
[2020-01-31] MEDS ORDERED: PRED10TA14 PO (09:51)
== END 2020-01-31 12:55 | disposition home or self-care (01) | DRG 193 ==
LOC: ED 22:32 → EDIP 01-28 00:20 → 3WST 01-28 02:22 → 4WST 01-29 11:11
PROVIDERS: ADMIT Family Medicine; ATTEND Hospitalist
DX: J18.9 Pneumonia, unspecified organism (principal); I50.31 Acute diastolic (congestive) heart failure; J96.01 Acute respiratory failure with hypoxia; J44.0 Chronic obstructive pulmonary disease with (acute) lower respiratory infection; F11.20 Opioid dependence, uncomplicated; J44.1 Chronic obstructive pulmonary disease with (acute) exacerbation; I11.0 Hypertensive heart disease with heart failure; I27.20 Pulmonary hypertension, unspecified; N31.9 Neuromuscular dysfunction of bladder, unspecified; F19.10 Other psychoactive substance abuse, uncomplicated; G89.29 Other chronic pain; I25.10 Atherosclerotic heart disease of native coronary artery without angina pectoris; M54.9 Dorsalgia, unspecified; G47.33 Obstructive sleep apnea (adult) (pediatric); F17.200 Nicotine dependence, unspecified, uncomplicated; F32.9 Major depressive disorder, single episode, unspecified; Z86.14 Personal history of Methicillin resistant Staphylococcus aureus infection; Z86.19 Personal history of other infectious and parasitic diseases; I25.2 Old myocardial infarction; Z59.0 Homelessness; Z03.818 Encounter for observation for suspected exposure to other biological agents ruled out
CPT/HCPCS: 36415; 71045; 80048; 80053; 80307; 83605; 83880; 84145; 84484; 85025; 87040; 87400; 93005; 93306; 96365; 96375; G0378; J0456; J0696; J1650; J1940; J7030; J7050; J7512

== ENCOUNTER 2020-04-22 12:19 | Emergency (ER) | payer MEDICARE, MEDICAID ==
[~2020-04-22] VITALS: Ht 180.3 cm; Wt 74.4 kg
[~2020-04-22 12:19] MED LIST changes: +AMLO-150 PO; +CEFD300C37 PO; +DOXY100T PO; +PRED10TA14 PO
[2020-04-22] MEDS ORDERED: METH10TA2 PO (12:50)
--- NOTE | 2020-04-22 12:52 | NUR ---
pt presents to ED with sob x 3 weeks, pt noted to have +4 pitting edema to bilateral LE. pt states "it's been that way for a while." pt states sob is worse when laying down. pt denies any other symptoms including cough, fever, sore throat. pt is a&o, resps even and unlabored. pt able to speak in full sentences without difficulty. pt attached to all monitors. call light in reach.
--- NOTE | 2020-04-22 13:20 | NUR ---
report given to ESTEFANY Raines who is assuming care. awaiting orders at this time.
[2020-04-22 13:51] LABS: BASOPHILS # (AUTO) 0.03 x10^3/uL (0-0.1); BASOPHILS % (AUTO) 1 % (0-1); EOSINOPHILS # (AUTO) 0.56 x10^3/uL (0-0.4); EOSINOPHILS % (AUTO) 17 % (1-7); LYMPHOCYTES # (AUTO) 1.18 x10^3/uL (1-3.4); LYMPHOCYTES % (AUTO) 36 % (22-44); MD NO; MEAN CORPUSCULAR HGB CONC 32.1 g/dL (33.2-36.2); MEAN CORPUSCULAR VOLUME 87.2 fL (81-97); MEAN PLATELET VOLUME 8.3 fL (7.4-10.4); MONOCYTES # (AUTO) 0.27 x10^3/uL (0.2-0.8); MONOCYTES % (AUTO) 8 % (2-9); NEUTROPHILS % (AUTO) 37 % (42-75); PLATELET COUNT 142 x10^3/uL (130-400); RED BLOOD COUNT 4.33 x10^6/uL (4.38-5.82); RED CELL DISTRIBUTION WIDTH 15.5 % (9.4-14.8)
[2020-04-22 14:03] LABS: ALANINE AMINOTRANSFERASE 32 U/L (12-78); ALBUMIN 3.5 g/dL (3.4-5.0); ANION GAP 1 mmol/L (5-15); CALCIUM 8.8 mg/dL (8.5-10.1); CHLORIDE 109 mmol/L (98-107); CREATININE 1.07 mg/dL (0.7-1.3)
[2020-04-22 14:12] LABS: ALKALINE PHOSPHATASE 80 U/L (45-117); BILIRUBIN,TOTAL 0.5 mg/dL (0.2-1.0); TOTAL PROTEIN 7.3 g/dL (6.4-8.2); TROPONIN I < 0.015 ng/mL (0.000-0.045)
--- NOTE | 2020-04-22 14:19 | NUR ---
PT RESTING WITH EYES CLOSED. BREATHING EVEN AND UNLABORED. CONTINUE TO MONITOR
[2020-04-22] MEDS ORDERED: FUROSEMIDE 40 MG/4 ML IV ONE (14:30)
--- NOTE | 2020-04-22 15:09 | NUR ---
RECEIVED ORDERS FOR LASIX IV AND CTA ORDERED. PT DIFFICULT STICK. TO ATTEMPT IV ACCESS
[2020-04-22] MEDS ORDERED: FUROSEMIDE 40 MG/4 ML ONE (15:43)
--- NOTE | 2020-04-22 15:51 | NUR ---
AFTER IV ESTABLISHED PT OFF FLOOR TO CT
--- NOTE | 2020-04-22 16:22 | NUR ---
PT COMPLAINED OF PAIN WHEN INJECTING SALINE- REFUSED ADDITIONAL ATTEMPT AT IV IN CT- REFUSED CT
--- NOTE | 2020-04-22 17:19 | NUR ---
UNABLE TO ESTABLISH IV FOR CT. MD AWARE. PT HAS BEEN DIURESING SINCE RECEIVING LASIX IV AND STATES HIS WOB HAS IMPROVED. PROVIDER IN ROOM RE-EVALUATING PT
[2020-04-22 18:21] VITALS: BP 144/102
== END 2020-04-22 18:29 | disposition home or self-care (01) ==
LOC: ED 14:45
DX: R06.00 Dyspnea, unspecified (principal); R06.2 Wheezing; R05 Cough; R94.31 Abnormal electrocardiogram [ECG] [EKG]; R07.9 Chest pain, unspecified; I10 Essential (primary) hypertension; F17.210 Nicotine dependence, cigarettes, uncomplicated
CPT/HCPCS: 36415; 71045; 80053; 83735; 83880; 84484; 85025; 87040; 93005; 96374; 99285; J1940

== ENCOUNTER 2021-04-26 02:56 | Emergency (ER) | payer MEDICAID, MEDICARE ==
[~2021-04-26] VITALS: Ht 180.3 cm; Wt 78.3 kg
[~2021-04-26 02:56] MED LIST changes: +FURO40TA6 PO; +METH10TA2 PO; +METH4TAB2 PO; +NICO-485 TD; +NICO-486 TD; +POTA10CA PO
[2021-04-26 03:01] VITALS: BP 119/80
--- NOTE | 2021-04-26 04:32 | NUR ---
patient left and signed AMA form.
== END 2021-04-26 05:01 | disposition left against medical advice (07) ==
LOC: ED 04:50
DX: R52 Pain, unspecified (principal); Z53.21 Procedure and treatment not carried out due to patient leaving prior to being seen by health care provider

== ENCOUNTER 2021-05-09 10:12 | Emergency (ER) | payer MEDICARE ==
[~2021-05-09] VITALS: Ht 165.1 cm; Wt 75.0 kg
--- NOTE | 2021-05-09 11:04 | NUR ---
FIRST CONTACT WITH PT: I need refill of my "water around heart medication"; med is lasix unknown mg. Says no other problems other than refill. PT TO ROOM WITH STEADY GAIT. ATTACHED TO MONITORS. VSS. BLAND. AWAITING LABS.
[2021-05-09 11:47] LABS: BASOPHILS % (AUTO) 1 % (0-1); EOSINOPHILS % (AUTO) 14 % (1-7); LYMPHOCYTES % (AUTO) 24 % (22-44); MEAN CORPUSCULAR HEMOGLOBIN 29.6 pg (27.5-34.5); MEAN CORPUSCULAR HGB CONC 33.9 g/dL (33.2-36.2); MEAN PLATELET VOLUME 8.5 fL (7.4-10.4); MONOCYTES % (AUTO) 9 % (2-9); NEUTROPHILS % (AUTO) 53 % (42-75); PLATELET COUNT 174 x10^3/uL (130-400); RED BLOOD COUNT 4.46 x10^6/uL (4.38-5.82); RED CELL DISTRIBUTION WIDTH 15.2 % (9.4-14.8)
[2021-05-09 11:57] VITALS: BP 152/104
[2021-05-09 11:58] LABS: ALBUMIN 3.1 g/dL (3.4-5.0)
[2021-05-09 12:03] LABS: ALANINE AMINOTRANSFERASE 69 U/L (12-78); ALKALINE PHOSPHATASE 73 U/L (45-117); BILIRUBIN,TOTAL 0.7 mg/dL (0.2-1.0); CREATININE 0.86 mg/dL (0.7-1.3); TOTAL PROTEIN 8.4 g/dL (6.4-8.2)
[2021-05-09 12:13] LABS: ANION GAP 4 mmol/L (5-15); CHLORIDE 106 mmol/L (98-107)
--- NOTE | 2021-05-09 13:14 | NUR ---
Patient given discharge instructions and they have confirmed that they understand the instructions. Patient ambulatory with steady gait. NAD, all questions answered appropriately, denies additional needs at this time. No personal belongings left in room after discharge.
== END 2021-05-09 13:16 | disposition home or self-care (01) ==
LOC: MERGE 10:12 → ED 12:05
DX: I11.0 Hypertensive heart disease with heart failure (principal); I50.9 Heart failure, unspecified; R07.9 Chest pain, unspecified; R00.0 Tachycardia, unspecified; I25.2 Old myocardial infarction; J44.9 Chronic obstructive pulmonary disease, unspecified
CPT/HCPCS: 36415; 71045; 80053; 83880; 85025; 93005; 99285

== ENCOUNTER 2021-05-31 17:35 | Emergency (ER) | payer MEDICARE ==
[~2021-05-31] VITALS: Ht 180.3 cm; Wt 78.0 kg
[2021-05-31 18:31] LABS: BASOPHILS % (AUTO) 1 % (0-1); EOSINOPHILS % (AUTO) 17 % (1-7); LYMPHOCYTES % (AUTO) 29 % (22-44); MEAN CORPUSCULAR HEMOGLOBIN 29.3 pg (27.5-34.5); MEAN CORPUSCULAR HGB CONC 33.1 g/dL (33.2-36.2); MEAN PLATELET VOLUME 8.4 fL (7.4-10.4); MONOCYTES % (AUTO) 13 % (2-9); NEUTROPHILS % (AUTO) 40 % (42-75); PLATELET COUNT 131 x10^3/uL (130-400); RED CELL DISTRIBUTION WIDTH 14.6 % (9.4-14.8)
[2021-05-31 18:39] LABS: ALBUMIN 2.9 g/dL (3.4-5.0); CALCIUM 8.8 mg/dL (8.5-10.1); CREATININE 0.94 mg/dL (0.7-1.3)
[2021-05-31 19:01] LABS: ALANINE AMINOTRANSFERASE 43 U/L (12-78); ALKALINE PHOSPHATASE 60 U/L (45-117); BILIRUBIN,TOTAL 0.3 mg/dL (0.2-1.0); TOTAL PROTEIN 7.6 g/dL (6.4-8.2)
[2021-05-31 19:02] LABS: TROPONIN I < 0.015 ng/mL (0.000-0.045)
[2021-05-31 19:03] LABS: ANION GAP 4 mmol/L (5-15); CHLORIDE 107 mmol/L (98-107)
[2021-06-01 00:19] VITALS: BP 124/77
[2021-06-01] MEDS ORDERED: LORazepam 1MG TABLET PO ONE (00:30)
[2021-06-01] MEDS ORDERED: LORazepam 1MG TABLET ONE (00:31)
== END 2021-06-01 01:31 | disposition home or self-care (01) ==
LOC: ED 23:59
DX: F41.1 Generalized anxiety disorder (principal); F17.210 Nicotine dependence, cigarettes, uncomplicated; R94.31 Abnormal electrocardiogram [ECG] [EKG]; I11.0 Hypertensive heart disease with heart failure; I50.9 Heart failure, unspecified; I25.2 Old myocardial infarction; J44.9 Chronic obstructive pulmonary disease, unspecified; Z86.19 Personal history of other infectious and parasitic diseases
CPT/HCPCS: 36415; 71045; 80053; 84484; 85025; 93005; 99406

== ENCOUNTER 2021-07-01 13:10 | Emergency (ER) | payer MEDICARE ==
[~2021-07-01] VITALS: Ht 180.3 cm; Wt 83.1 kg
[2021-07-01 14:48] VITALS: BP 129/78
--- NOTE | 2021-07-01 14:49 | NUR ---
MANAGER PLACEMENT: DANA SANTOS IN TRIAGE ROOM FOR EVAL. PT TO BE DC'D FROM [facility].
== END 2021-07-01 14:58 | disposition home or self-care (01) ==
LOC: ED 14:50
DX: F41.1 Generalized anxiety disorder (principal); I10 Essential (primary) hypertension
CPT/HCPCS: 99281